=== PATIENT | female | born 1930 | race Caucasian/White ===

== ENCOUNTER 2018-09-11 09:49 | Emergency (ER) | payer MEDICARE, BC ==
[2018-09-11 09:56] VITALS: TEMP 97.6
[2018-09-11] MEDS ORDERED: SODIUM CHLORIDE 0.9% 500 ML 500 ML IV STA (10:12)
--- NOTE | 2018-09-11 10:16 | ED ---
General Adult HPI - General Chief complaint: Chest Pain Stated complaint: CONCERNED ABOUT HAVING A HEART ATTACK Time Seen by Provider: 09/11/18 09:59 Source: patient, RN notes reviewed Mode of arrival: ambulatory Limitations: no limitations - History of Present Illness Initial comments: 87-year-old femaleWith a past medical history of hyperlipidemia, atrial fibrillation presents to the emergency department for a chief complaint of back pain radiating to the chest. Patient states this occurred 3 days ago. She states it lasted for 5 minutes and then subsided. Patient states she thought this was gas so did not present to the emergency department at that time. She denies any abdominal pain and states bowel movements are normal. Patient states this pain was a very sharp pain. Patient denies any pain since that time. Patient states her family member wanted her to be evaluated. Patient denies any shortness of breath. Patient denies any aneurysm history. Patient is on Eliquis for atrial fibrillation and recently had an echo done of her heart. She sees Dr. Kaiser for this. Patient believes she had a stress test on 3 or 4 years ago. Patient has no other complaints at this time including shortness of breath, chest pain, abdominal pain, nausea or vomiting, headache, or visual changes. - Related Data Home Medications Medication Instructions Recorded Confirmed Levothyroxine Sodium [Synthroid] 50 mcg PO DAILY 10/29/15 09/11/18 Simvastatin [Zocor] 40 mg PO HS 10/29/15 09/11/18 Timolol 0.5% Ophth Soln [Timoptic 1 drop BOTH EYES DAILY 10/29/15 09/11/18 0.5% Ophth Soln] Travoprost [Travatan Z 0.004%] 1 drop BOTH EYES HS 10/29/15 09/11/18 Albuterol Inhaler [Ventolin Hfa 1 - 2 puff INHALATION RT-Q6H PRN 09/11/18 Inhaler] Previous Rx's Medication Instructions Recorded Apixaban [Eliquis] 2.5 mg PO BID #30 tab 10/30/15 Allergies Allergy/AdvReac Type Severity Reaction Status Date / Time No Known Allergies Allergy Verified 09/11/18 09:56 Review of Systems ROS Statement: Those systems with pertinent positive or pertinent negative responses have been documented in the HPI. ROS Other: All systems not noted in ROS Statement are negative. Past Medical History Past Medical History: Eye Disorder, Hyperlipidemia, Thyroid Disorder History of Any Multi-Drug Resistant Organisms: None Reported Past Surgical History: No Surgical Hx Reported Past Psychological History: No Psychological Hx Reported Smoking Status: Never smoker Past Alcohol Use History: None Reported Past Drug Use History: None Reported - Past Family History Father Family Medical History: Coronary Artery Disease (CAD) Mother Family Medical History: Coronary Artery Disease (CAD) General Exam Limitations: no limitations General appearance: alert, in no apparent distress Head exam: Present: atraumatic, normocephalic, normal inspection Eye exam: Present: normal appearance, PERRL, EOMI. Absent: scleral icterus, conjunctival injection, periorbital swelling ENT exam: Present: normal exam, mucous membranes moist Neck exam: Present: normal inspection, full ROM. Absent: tenderness, meningismus, lymphadenopathy Respiratory exam: Present: normal lung sounds bilaterally. Absent: respiratory distress, wheezes, rales, rhonchi, stridor Cardiovascular Exam: Present: regular rate, normal rhythm, normal heart sounds. Absent: systolic murmur, diastolic murmur, rubs, gallop, clicks GI/Abdominal exam: Present: soft, normal bowel sounds. Absent: distended, tenderness (No tenderness noted in the abdomen whatsoever), guarding, rebound, rigid Neurological exam: Present: alert, oriented X3, CN II-XII intact Psychiatric exam: Present: normal affect, normal mood Course Vital Signs 09/11/18 09/11/18 09/11/18 09:53 10:19 10:30 Temperature 97.6 F Pulse Rate 64 58 L 57 L Respiratory 20 14 16 Rate Blood Pressure 163/68 150/69 O2 Sat by Pulse 97 94 L 94 L Oximetry 09/11/18 09/11/18 09/11/18 10:53 11:00 11:30 Temperature Pulse Rate 60 60 Respiratory 16 18 Rate Blood Pressure 140/58 140/58 151/61 O2 Sat by Pulse 98 96 Oximetry 09/11/18 09/11/18 09/11/18 12:30 13:00 13:30 Temperature Pulse Rate 58 L 58 L 60 Respiratory 14 18 16 Rate Blood Pressure 159/66 169/68 163/65 O2 Sat by Pulse 100 96 96 Oximetry EKG Findings - EKG Comments: EKG Findings:: Ventricular rate 58, IN interval 186, QTC 439, sinus bradycardia Medical Decision Making - Medical Decision Making 87-year-old female with a past medical history of hyperlipidemia and atrial fibrillation presents for a chief back pain radiating to the chest. This occurred 3 days ago. This was brief in nature. Vitals are within acceptable limits. No history of hypertensio. CBC CMP unremarkable. EKG shows no ST elevation or depression. Troponin negative. Chest x-ray shows no acute cardiopulmonary. 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 Dr. Lin discussed this case with Dr Mercer who stated this would not be causing patient's pain. As this is chronic, no intervention needed emergently. Patient's pain may have been musculoskeletal at the time and she was crocheting. At this time patient will be discharged home with follow-up to primary care. - Lab Data Result diagrams: 09/11/18 10:30 09/11/18 10:30 Lab Results 09/11/18 09/11/18 09/11/18 Range/Units 10:30 10:30 10:30 WBC 5.0 (3.8-10.6) k/uL RBC 4.33 (3.80-5.40) m/uL Hgb 13.1 (11.4-16.0) gm/dL Hct 40.0 (34.0-46.0) % MCV 92.4 (80.0-100.0) fL MCH 30.2 (25.0-35.0) pg MCHC 32.7 (31.0-37.0) g/dL RDW 13.8 (11.5-15.5) % Plt Count 160 (150-450) k/uL Neutrophils % 57 % Lymphocytes % 35 % Monocytes % 5 % Eosinophils % 1 % Basophils % 0 % Neutrophils # 2.8 (1.3-7.7) k/uL Lymphocytes # 1.7 (1.0-4.8) k/uL Monocytes # 0.2 (0-1.0) k/uL Eosinophils # 0.1 (0-0.7) k/uL Basophils # 0.0 (0-0.2) k/uL PT (9.0-12.0) sec INR (<1.2) APTT (22.0-30.0) sec Sodium 136 L (137-145) mmol/L Potassium 4.7 (3.5-5.1) mmol/L Chloride 107 (98-107) mmol/L Carbon Dioxide 22 (22-30) mmol/L Anion Gap 7 mmol/L BUN 17 (7-17) mg/dL Creatinine 0.97 (0.52-1.04) mg/dL Est GFR (CKD-EPI)AfAm 61 (>60 ml/min/1.73 sqM) Est GFR (CKD-EPI)NonAf 53 (>60 ml/min/1.73 sqM) Glucose 131 H (74-99) mg/dL Calcium 9.0 (8.4-10.2) mg/dL Magnesium 2.2 (1.6-2.3) mg/dL Total Bilirubin 0.5 (0.2-1.3) mg/dL AST 19 (14-36) U/L ALT 16 (9-52) U/L Alkaline Phosphatase 63 (38-126) U/L Total Creatine Kinase 40 (30-135) U/L CK-MB (CK-2) 0.3 (0.0-2.4) ng/mL CK-MB (CK-2) Rel Index 0.8 Troponin I <0.012 (0.000-0.034) ng/mL Total Protein 6.3 (6.3-8.2) g/dL Albumin 3.9 (3.5-5.0) g/dL Amylase 79 (30-110) U/L Lipase 174 (23-300) U/L 09/11/18 Range/Units 10:30 WBC (3.8-10.6) k/uL RBC (3.80-5.40) m/uL Hgb (11.4-16.0) gm/dL Hct (34.0-46.0) % MCV (80.0-100.0) fL MCH (25.0-35.0) pg MCHC (31.0-37.0) g/dL RDW (11.5-15.5) % Plt Count (150-450) k/uL Neutrophils % % Lymphocytes % % Monocytes % % Eosinophils % % Basophils % % Neutrophils # (1.3-7.7) k/uL Lymphocytes # (1.0-4.8) k/uL Monocytes # (0-1.0) k/uL Eosinophils # (0-0.7) k/uL Basophils # (0-0.2) k/uL PT 10.0 (9.0-12.0) sec INR 0.9 (<1.2) APTT 25.6 (22.0-30.0) sec Sodium (137-145) mmol/L Potassium (3.5-5.1) mmol/L Chloride (98-107) mmol/L Carbon Dioxide (22-30) mmol/L Anion Gap mmol/L BUN (7-17) mg/dL Creatinine (0.52-1.04) mg/dL Est GFR (CKD-EPI)AfAm (>60 ml/min/1.73 sqM) Est GFR (CKD-EPI)NonAf (>60 ml/min/1.73 sqM) Glucose (74-99) mg/dL Calcium (8.4-10.2) mg/dL Magnesium (1.6-2.3) mg/dL Total Bilirubin (0.2-1.3) mg/dL AST (14-36) U/L ALT (9-52) U/L Alkaline Phosphatase (38-126) U/L Total Creatine Kinase (30-135) U/L CK-MB (CK-2) (0.0-2.4) ng/mL CK-MB (CK-2) Rel Index Troponin I (0.000-0.034) ng/mL Total Protein (6.3-8.2) g/dL Albumin (3.5-5.0) g/dL Amylase (30-110) U/L Lipase (23-300) U/L Disposition 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 Please follow-up with primary care in 1-2 days. Return to the emergency department if you have any worsening symptoms or any additional chest or back pain. Is patient prescribed a controlled substance at d/c from ED?: No Referrals: Zeferino Borden DO [Primary Care Provider] - 1-2 days Time of Disposition: 14:43
--- NOTE | 2018-09-11 10:54 | XR ---
EXAMINATION TYPE: XR chest 2V DATE OF EXAM: 09/11/2018 COMPARISON: Prior chest x-ray 11/22/2017 HISTORY: Chest pain TECHNIQUE: Frontal and lateral views of the chest are obtained. FINDINGS: There are cardiac leads. Biapical pleural thickening is noted. There is no focal air space opacity, pleural effusion, or pneumothorax seen. The cardiac silhouette size is stable. Aorta is de nse. The osseous structures are intact. IMPRESSION: No acute cardiopulmonary process.
[2018-09-11 10:56] LABS: Basophils % (A) 0 %; Eosinophils # (A) 0.1 k/uL (0-0.7); Eosinophils % (A) 1 %; HGB 13.1 gm/dL (11.4-16.0); Lymphocytes # (A) 1.7 k/uL (1.0-4.8); Lymphocytes % (A) 35 %; MCH 30.2 pg (25.0-35.0); MCHC 32.7 g/dL (31.0-37.0); MCV 92.4 fL (80.0-100.0); Mean Platelet Volume 7.4; Monocytes # (A) 0.2 k/uL (0-1.0); Monocytes % (A) 5 %; Neutrophils # (A) 2.8 k/uL (1.3-7.7); Neutrophils % (A) 57 %; Platelet Count 160 k/uL (150-450); RBC 4.33 m/uL (3.80-5.40); RDW 13.8 % (11.5-15.5)
[2018-09-11 11:02] LABS: INR 0.9 (<1.2); Partial Thromboplastin Time 25.6 sec (22.0-30.0)
[2018-09-11 11:13] LABS: Albumin 3.9 g/dL (3.5-5.0); Magnesium 2.2 mg/dL (1.6-2.3); Potassium 4.7 mmol/L (3.5-5.1); Total Bilirubin 0.5 mg/dL (0.2-1.3); Total Protein 6.3 g/dL (6.3-8.2)
[2018-09-11 11:14] LABS: Creatine Kinase 40 U/L (30-135)
[2018-09-11 11:26] LABS: Creatine Kinase MB 0.3 ng/mL (0.0-2.4); Troponin I <0.012 ng/mL (0.000-0.034)
--- NOTE | 2018-09-11 12:41 | CT ---
EXAMINATION TYPE: CT angio thor/abd pel aorta DATE OF EXAM: 09/11/2018 COMPARISON: None. HISTORY: Back pain rule out dissection CT DLP: 709.1 mGycm. Automated Exposure Control for Dose Reduction was Utilized. CONTRAST: CTA scan of the thorax and abdomen through the aortic bifurcation are performed without oral and with out and with IV Contrast, patient injected with 80 mL of Isovue 370. Three-D reconstructed images are created on independent workstation and reviewed. FINDINGS: VASCULAR: There is normal three-vessel origin from the aortic arch. No significant plaque or stenosis is present. No aneurysm in the ascending aorta is identified. There is mild to moderate mixed plaque in the descending thoracic aorta. There is more moderate noncalcified plaque near the diaphragmatic hiatus, there is linear hypodensity suspicious for focal chronic dissection axial image 71. There is patent celiac axis and SMA with prominent calcified plaque superiorly at celiac artery origin, no sig nificant stenosis is felt present. There are patent bilateral single renal arteries without significa nt stenosis. There is patent JOSIAH identified. There is moderate to severe mixed plaque in the infraren al abdominal aorta extending into iliac branch vessels were there is more mild mixed plaque except at level of proximal left common iliac artery where there is more moderate mixed eccentric plaque. Ther e are patency of the central pulmonary arteries which are dilated consistent with underlying pulmonar y artery hypertension LUNGS: Dependent atelectasis in both lower lobes is present. There is additional patchy opacity left lung base just above diaphragm could reflect edema and/or atelectasis. There is scattered mild linea r atelectasis and/or scarring bilaterally. No suspicious nodules or masses are present. There is no p leural effusion or pneumothorax seen. The tracheobronchial tree is patent. MEDIASTINUM: There are no greater than 1 cm hilar or mediastinal lymph nodes. No pericardial effusi on is seen. Cardiomegaly is present. OTHER: No additional significant abnormality is seen. LIVER/GB: No significant abnormality is appreciated. PANCREAS: No significant abnormality is seen. SPLEEN: No significant abnormality is seen. ADRENALS: No significant abnormality is seen. KIDNEYS: No significant abnormality is seen. BOWEL: No significant abnormality is seen. LYMPH NODES: No greater than 1cm abdominal lymph nodes are appreciated. OSSEOUS STRUCTURES: S-shaped scoliosis is present. There is moderate to severe disc space narrowing w ith endplate sclerosis right L3-L4 and L4-L5 levels. OTHER: No significant additional abnormality is seen. IMPRESSION: Moderate diffuse atherosclerotic change with small focal chronic dissection in the descen ding aorta at level of diaphragmatic hiatus. No aneurysm is evident. No acute finding is noted.
[2018-09-11 13:46] VITALS: PULSE 60; RESP 16
[2018-09-11 14:52] VITALS: BP 138/54
== END 2018-09-11 14:50 | disposition home or self-care (01) ==
LOC: EC 09:49
DX: I71.01 Dissection of thoracic aorta (principal); E78.5 Hyperlipidemia, unspecified; E07.9 Disorder of thyroid, unspecified; I48.91 Unspecified atrial fibrillation; Z82.49 Family history of ischemic heart disease and other diseases of the circulatory system; Z79.890 Hormone replacement therapy; Z79.899 Other long term (current) drug therapy
CPT/HCPCS: 36415; 93005; 80053; 82150; 82550; 82553; 83690; 83735; 84484; 85025; 85610; 85730; 71046; 71275; 74174; 99285; 96360; 96361 ×2; Q9967